=== PATIENT | male | born 2000 | race American Indian/Alaskan Native ===

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

== ENCOUNTER 2021-10-20 00:17 | Emergency (ER) | payer MEDICAID, OTHER ==
[2021-10-20] MEDS ORDERED: predniSONE 20 MG Tab PO ONE (02:59)
[2021-10-20] MEDS ORDERED: Albuterol 6.7 GM Inhaler INH ONE (03:20)
[2021-10-20 03:58] VITALS: BP 182/98; PULSE 108
== END 2021-10-20 03:48 | disposition home or self-care (01) ==
LOC: DL.ED 00:17
DX: J45.21 Mild intermittent asthma with (acute) exacerbation (principal); Z20.822 Contact with and (suspected) exposure to COVID-19; Z90.49 Acquired absence of other specified parts of digestive tract
CPT/HCPCS: 71045; 87635; 99284; A9270; J7512; U0002

== ENCOUNTER 2022-02-23 15:53 | Emergency (ER) | payer MEDICAID | END 2022-02-23 17:35 | disposition left against medical advice (07) | LOC: DL.ED 15:53 | DX: Z53.21 Procedure and treatment not carried out due to patient leaving prior to being seen by health care provider (principal) ==